=== PATIENT | female | born 1990 | race Caucasian/White ===

== ENCOUNTER 2016-10-31 00:45 | Inpatient (IN) | payer SELFPAY ==
[~2016-10-31] VITALS: Ht 157.5 cm; Wt 47.4 kg
[2016-10-31] MEDS ORDERED: FLUO-191 PO (01:02)
[2016-10-31] MEDS ORDERED: ALPR0.5T8 PO (01:02)
[2016-10-31] MEDS ORDERED: ZOLP5 PO (01:02)
[2016-10-31 01:12] LABS: BASOPHILS # (AUTO) 0.07 K/uL (0.00-0.20); BASOPHILS % (AUTO) 0.9 % (0.0-2.0); EOSINOPHILS # (AUTO) 0.03 K/uL (0.00-0.70); EOSINOPHILS % (AUTO) 0.38 % (1.0-6.0); HEMOGLOBIN 12.9 g/dL (12.0-16.0); LYMPHOCYTES # (AUTO) 2.4 K/uL (1.0-4.8); LYMPHOCYTES % (AUTO) 30.7 % (22.0-44.0); MEAN CORPUSCULAR HEMOGLOBIN 31.1 pg (26.0-34.0); MEAN CORPUSCULAR VOLUME 91 fL (80-100); MONOCYTES # (AUTO) 0.4 K/uL (0.1-1.0); MONOCYTES % (AUTO) 5.2 % (2.0-9.0); NEUTROPHILS # (AUTO) 4.9 K/uL (1.8-7.7); NEUTROPHILS % (AUTO) 62.8 % (40.0-70.0); PLATELET COUNT (AUTO) 259 K/uL (150-450); RED BLOOD CELL COUNT(AUTO) 4.16 MIL/uL (4.00-5.20); RED CELL DISTRIBUTION WIDTH 12.5 % (11.5-14.5); WHITE BLOOD COUNT (AUTO) 7.8 K/uL (4.5-11.0)
[2016-10-31 01:24] LABS: ANION GAP 9 mmol/L (8-16); CALCIUM, TOTAL 9.2 mg/dL (8.8-10.5); CARBON DIOXIDE 25 mmol/L (22-29); CHLORIDE 108 mmol/L (98-107); CREATININE 0.83 mg/dL (0.60-1.30); GLOMERULAR FILTR. RATE CALC > 60 mL/min (>60); SODIUM SERUM 142 mmol/L (136-145); UREA NITROGEN, BLOOD 12 mg/dL (7-18)
[2016-10-31 01:32] LABS: ALANINE AMINOTRANSFERASE 19 U/L (12-78); ALBUMIN 4.2 g/dL (3.4-5.0); ASPARTATE AMINOTRANSFERASE 17 U/L (15-37); BILIRUBIN,TOTAL 0.5 mg/dL (0.1-1.0); TOTAL PROTEIN, SERUM 7.4 g/dL (6.4-8.2)
[2016-10-31] MEDS ORDERED: DiphenhydrAMINE HCL 50 MG/ML VIAL IM ONE (03:30)
[2016-10-31] MEDS ORDERED: LORazepam 2 MG TABLET PO PRN (03:30)
[2016-10-31] MEDS ORDERED: ZOLPIDEM TARTRATE 10 MG TABLET PO PRN (03:30)
[2016-10-31] MEDS ORDERED: HALOPERIDOL LACTATE 5 MG/ML VIAL IM ONE (03:30)
[2016-10-31] MEDS ORDERED: LORazepam 2 MG/ML VIAL IM ONE (03:30)
[2016-10-31] MEDS ORDERED: HALOPERIDOL 5 MG TABLET PO PRN (03:30)
[2016-10-31 04:34] LABS: APPEARANCE,URINE TURBID (CLEAR); GLUCOSE, URINE (UA) NEGATIVE (NEGATIVE); KETONES,URINE 15 mg/dL (NEGATIVE); LEUKOCYTE ESTERASE ,URINE TRACE (NEGATIVE); OCCULT BLOOD,URINE TRACE (NEGATIVE); PH,URINE 7.5 (5.0-8.0); PROTEIN,URINE TRACE (NEGATIVE)
[2016-10-31 04:35] LABS: ADD UA MICROSCOPIC YES
[2016-10-31 05:02] LABS: AMORPHOUS SEDIMENT,UR Moderate /LPF (None Seen); SQUAMOUS EPITHELIAL CELL,UR Rare /LPF (None Seen)
[2016-10-31 11:46] VITALS: BP 107/60
[2016-10-31 16:41] VITALS: BP 106/66
[2016-11-01 08:54] VITALS: BP 116/70
[2016-11-01 16:00] VITALS: BP 109/63
[2016-11-01 16:20] VITALS: BP 110/68
[2016-11-01] MEDS: FLUoxetine HCL 20 MG CAPSULE PO SCH (17:03)
[2016-11-02 07:03] VITALS: BP 121/73
[2016-11-02] MEDS: FLUoxetine HCL 20 MG CAPSULE PO SCH (08:52)
[2016-11-02 08:54] VITALS: BP 100/56
[2016-11-02] MEDS ORDERED: FLUO-191 PO (10:41)
== END 2016-11-02 11:10 | disposition home or self-care (01) | DRG 885 ==
LOC: EMS 00:46 → B3A 05:30
PROVIDERS: ADMIT Psychiatry & Neurology Child & Adolescent Psychiatry; ATTEND Psychiatry & Neurology Child & Adolescent Psychiatry
DX: F33.2 Major depressive disorder, recurrent severe without psychotic features (principal); F15.20 Other stimulant dependence, uncomplicated; R45.851 Suicidal ideations; F20.0 Paranoid schizophrenia; F17.200 Nicotine dependence, unspecified, uncomplicated; F60.3 Borderline personality disorder; Z62.819 Personal history of unspecified abuse in childhood; F99 Mental disorder, not otherwise specified; Z79.899 Other long term (current) drug therapy; Z71.51 Drug abuse counseling and surveillance of drug abuser; Z71.6 Tobacco abuse counseling
CPT/HCPCS: 96372; 99285; G0480; J1200; J1630; J2060